=== PATIENT | male | born 1960 | race African-American/Black ===

== ENCOUNTER 2016-09-26 15:04 | Outpatient (CLI) | payer OTHER | END 2016-09-26 23:00 | LOC: RT SRH 15:04 | PROC: 4A02XM4 Measurement of Cardiac Total Activity, External Approach (ICD-10-PCS; principal; 2016-09-26) | DX: R42 Dizziness and giddiness (principal); Z72.0 Tobacco use; E11.9 Type 2 diabetes mellitus without complications ==